=== PATIENT | male | born 1940 | race Caucasian/White ===

== ENCOUNTER 2016-07-26 16:32 | Emergency (ER) | payer MEDICARE, BC ==
[~2016-07-26] VITALS: Ht 172.7 cm; Wt 80.7 kg
[~2016-07-26 16:32] MED LIST: BP PILL PO
[2016-07-26] MEDS ORDERED: ATOR10TA PO (16:41)
[2016-07-26] MEDS ORDERED: TAMS0.4C34 PO (16:42)
[2016-07-26] MEDS ORDERED: NAPR220C15 PO (16:42)
--- NOTE | 2016-07-26 16:50 | NUR ---
Pt c/o possible spider bite on right upper arm, about 5 days ago, slight redness and slight edema noted, w/o pain, but itches. Also c/o head "discomfort" for about 3 days after 5 day course of Alieve, some nausea but none currently. Pt denies dizziness, no other complaints, no distress noted.
--- NOTE | 2016-07-26 17:36 | NUR ---
gave pt d/c instructions, verbalized understanding.
== END 2016-07-26 17:43 | disposition home or self-care (01) ==
LOC: ER 16:39
DX: S40.811A Abrasion of right upper arm, initial encounter (principal); I10 Essential (primary) hypertension; X58.XXXA Exposure to other specified factors, initial encounter; Y93.89 Activity, other specified; Y99.8 Other external cause status; Y92.89 Other specified places as the place of occurrence of the external cause
CPT/HCPCS: 99281; A4663